=== PATIENT | female | born 1960 | race Two or more races ===

== ENCOUNTER 2019-07-08 13:42 | Emergency (ER) | payer BC ==
[~2019-07-08] VITALS: Ht 167.6 cm; Wt 101.2 kg
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
--- NOTE | 2019-07-08 14:05 | NUR ---
AT BEDSIDE FOR EVAL.
[2019-07-08 14:35] LABS: BASOPHILS # (AUTO) 0.1 /CMM (0.0-0.2); BASOPHILS % (AUTO) 0.8 % (0.0-2.0); EOSINOPHILS % (AUTO) 0.4 % (0.0-6.0); HEMATOCRIT 41 % (33-45); HEMOGLOBIN 13.2 g/dL (11.5-14.8); LYMPHOCYTES % (AUTO) 23.3 % (20.0-44.0); MEAN CORPUSCULAR HGB CONC 32 g/dl (31.0-36.0); MEAN CORPUSCULAR VOLUME 89 fL (82-100); MONOCYTES # (AUTO) 0.8 /CMM (0.1-1.30); MONOCYTES % (AUTO) 6.4 % (2.0-12.0); NEUTROPHILS # (AUTO) 8.8 /CMM (1.8-8.9); NEUTROPHILS % (AUTO) 69.1 % (43.0-81.0); PLATELET COUNT (AUTO) 312 /CMM (150-450); RED BLOOD CELL COUNT(AUTO) 4.63 MIL/uL (4.0-5.2); WHITE BLOOD COUNT (AUTO) 12.7 K/uL (4.3-11.0)
[2019-07-08] MEDS ORDERED: FENTANYL PF 100MCG/2ML AMPUL ONE ×2 (14:42→15:39)
[2019-07-08] MEDS ORDERED: ONDANSETRON HCL/PF 4 MG/2 ML VIAL ONE (14:44)
[2019-07-08 14:50] LABS: CARBON DIOXIDE 24 mmol/L (21-32); CHLORIDE 101 mmol/L (98-107); CREATININE 0.9 mg/dL (0.6-1.3); POTASSIUM 3.7 mmol/L (3.5-5.1); SODIUM SERUM 137 mmol/L (136-145); UREA NITROGEN, BLOOD 19 mg/dL (7-18)
[2019-07-08 14:53] LABS: GLUCOSE 372 mg/dL (74-106)
[2019-07-08 14:55] LABS: ALANINE AMINOTRANSFERASE 31 U/L (12-78); ALBUMIN 3.9 g/dL (3.4-5.0); ALKALINE PHOSPHATASE 159 U/L (46-116); ASPARTATE AMINOTRANSFERASE 23 U/L (15-37); BILIRUBIN,TOTAL 0.5 mg/dL (0.2-1.0); LIPASE 74 U/L (73-393); TOTAL PROTEIN, SERUM 7.4 g/dL (6.4-8.2)
[2019-07-08] MEDS ORDERED: ONDANSETRON HCL/PF 4 MG/2 ML VIAL IV ONE (15:00)
[2019-07-08] MEDS ORDERED: FENTANYL PF 100MCG/2ML AMPUL IV ONE ×2 (15:00→16:00)
--- NOTE | 2019-07-08 15:10 | NUR ---
[employer] AT BEDSIDE FOR XRAY.
--- NOTE | 2019-07-08 15:29 | NUR ---
[employer] AT BEDSIDE.
--- NOTE | 2019-07-08 15:29 | NUR ---
PT IS WHEELED TO CT SCAN VIA [facility].
[2019-07-08] MEDS ORDERED: IV NS 0.9% 250 ML IV ONE (15:30)
[2019-07-08] MEDS ORDERED: IOHEXOL-300 100 ML VIAL IV ONE (15:30)
--- NOTE | 2019-07-08 16:31 | NUR ---
COVID SWAB OBTAINED AND SENT TO LAB.
--- NOTE | 2019-07-08 16:40 | NUR ---
CALLED DR HERNANDEZ, SPEAKING WITH DR GUTIERREZ
[2019-07-08] MEDS ORDERED: MORPHINE SULFATE INJ 4 MG/ML DISP.SYRIN ONE (16:46)
[2019-07-08] MEDS ORDERED: INSULIN REGULAR, HUMAN 100 UNIT/ML 10 ML VIAL ONE (16:46)
[2019-07-08] MEDS ORDERED: INSULIN REGULAR, HUMAN 100 UNIT/ML 10 ML VIAL SQ ONE (17:00)
[2019-07-08] MEDS ORDERED: MORPHINE SULFATE INJ 2 MG/ML DISP.SYRIN IV ONE (17:00)
[2019-07-08 17:55] VITALS: BP 138/81
== END 2019-07-08 18:07 | disposition home or self-care (01) ==
LOC: ER 13:43
DX: S20.212A Contusion of left front wall of thorax, initial encounter (principal); S30.1XXA Contusion of abdominal wall, initial encounter; S80.12XA Contusion of left lower leg, initial encounter; S80.11XA Contusion of right lower leg, initial encounter; K43.9 Ventral hernia without obstruction or gangrene; E11.65 Type 2 diabetes mellitus with hyperglycemia; I10 Essential (primary) hypertension; Z88.5 Allergy status to narcotic agent; V49.59XA Passenger injured in collision with other motor vehicles in traffic accident, initial encounter; Y93.89 Activity, other specified; Y92.488 Other paved roadways as the place of occurrence of the external cause; Y99.8 Other external cause status; D72.829 Elevated white blood cell count, unspecified; K57.30 Diverticulosis of large intestine without perforation or abscess without bleeding; R91.8 Other nonspecific abnormal finding of lung field; Z20.828 Contact with and (suspected) exposure to other viral communicable diseases; Z82.49 Family history of ischemic heart disease and other diseases of the circulatory system
CPT/HCPCS: 36415; 71045; 71260; 73590 ×2; 74177; 80053; 82962; 83690; 83880; 84484; 85025; 85730; 87635; 93005; 96372; 96374; 96375; 96376; 99285; J1815; J2270; J2405; J3010 ×2; J7050; Q9967